=== PATIENT | female | born 1995 | race African-American/Black ===

== ENCOUNTER 2017-02-19 16:18 | Emergency (ER) | payer OTHER ==
--- NOTE | ~2017-02-19 | US106 ---
[facility] A Service of [facility] RADIOLOGY TEXT RESULTS PATIENT: SHANELL BANERJEE LOCATION: CFTX : [birth year] UNIT #: [id number] AGE: [address]: Diana López APRN SEX: F ORDER DR: [id number] [facility] [address] [place], [place] [address] [id number] MR#: [id number] Acc #: [id number] NAME: SHANELL BANERJEE : 1995 SEX: F STUDY DATE/TIME: 02/19/2017 17:24 UNIT: [facility] ROOM: STUDY DESCRIPTION: US Preg Uterus Transvaginal Attending Physician: Diana López A.P.R.N. Ordering Physician: Ren Hernandez M.D. Primary Care Physician: Primary Care Physician No MEDICAL IMAGING REPORT This report is preliminary unless electronic signature is present EXAM Ultrasound pelvis, early assessment, 02/19/2017 HISTORY 21-year-old female in the ED complaining of 1-day history of cramping pelvic pain and light vaginal bleeding during first trimester . TECHNIQUE Pelvic ultrasound examination was performed endovaginally. Transabdominal imaging was precluded by an empty urinary bladder. FINDINGS Single living intrauterine gestation. Estimated gestational age by ultrasound is 8 weeks, 3 days with an CIRILO of 09/28/2017. This is approximately 4 weeks more advanced than predicted by menstrual history. Gestational sac size is appropriate for gestational age, the sac is normally positioned within the central endometrial cavity. No significant subchorionic fluid is seen. Embryonic heart rate measuring up to 187 beats per minute. Right ovary not seen. Left ovary appears normal with a small physiologic cyst. No free pelvic fluid is identified. IMPRESSION Single living intrauterine gestation at 8 weeks, 3 days. Dictated by... Robert Galvan M.D. THIS IS AN ELECTRONICALLY VERIFIED REPORT Robert Galvan M.D. at 02/22/2017 5:58 AM NISHANT/miguel TD: 02/20/2017 08:53 STS. [facility] A Service of [facility] RADIOLOGY TEXT RESULTS PATIENT: SHANELL BANERJEE LOCATION: [facility] : [birth year] UNIT #: [id number] AGE: [address]: Diana López APRN SEX: F ORDER DR: LAMAR #: [id number] MEDICAL IMAGING REPORT Page 1 of 1 COPY
[2017-02-19 16:24] LABS: URINE SOURCE CATH
[2017-02-19 16:32] LABS: BASOPHIL# 0.1 X10e3 (0-0.3); BASOPHIL% 1.1 % (0-2.5); EOSINOPHIL# 0.2 X10e3 (0-0.7); EOSINOPHIL% 3.1 % (0.0-7.0); HEMATOCRIT 37.2 % (35.0-45.0); LYMPHOCYTE# 2.3 X10e3 (1.0-3.5); LYMPHOCYTE% 35.9 % (17.0-45.0); MEAN CELL VOLUME 80.4 FL (83-96); MEAN CORPUSCULAR HEMOGLOBIN 25.9 PG (28-34); MEAN CORPUSCULAR HGB CONC 32.2 g/dL (30-36); MEAN PLATELET VOLUME 8.9 FL (6.5-11.5); MONOCYTE# 0.4 X10e3 (0-1.0); NEUTROPHIL# 3.4 X10e3 (1.5-7.1); NEUTROPHIL% 53.9 % (40-75); PLATELET COUNT 335 X10e3 (140-420); RED BLOOD COUNT 4.63 X10e (3.90-5.30); RED CELL DISTRIBUTION WIDTH 15.6 % (11.0-15.5); WHITE BLOOD COUNT 6.4 X10e3 (4.0-10.5)
[2017-02-19 16:37] LABS: DIFF IND NO
[2017-02-19 16:50] LABS: URINE APPEARANCE CLEAR; URINE BILIRUBIN NEG (NEG); URINE BLOOD NEG (NEG); URINE COLOR DK YELLOW; URINE GLUCOSE NEG (NEG); URINE KETONE 1+ (NEG); URINE LEUKOCYTE ESTERASE TRACE (NEG); URINE NITRATE NEG (NEG); URINE PH 7.5 (5-8); URINE PROTEIN NEG (NEG); URINE SPECIFIC GRAVITY 1.026 (1.003-1.035)
[2017-02-19 16:55] LABS: URBCS1 AUWI 0-2 /[HPF] (0-2); URINE BACTERIA AUWI NEG (NEGATIVE); URINE SQUAMOUS EPITHELIAL CELL OCC /[HPF]; UWBCS1 AUWI 0-2 (0-5)
[2017-02-19 17:00] LABS: CULTURE INDICATED? NO
[2017-02-19 17:09] LABS: BUN/CREATININE RATIO 7.14; CALCIUM SERUM 9.3 mg/dL (8.4-10.2); CREATININE SERUM 0.7 mg/dL (0.6-1.4); GLOM FILT RATE Estimated 142.5 mL/min (>60); POTASSIUM 3.4 mmol/L (3.5-5.1)
[2017-02-23 08:29] LABS: CHLAMYDIA TRACH Not Detected (Not Detected); N GONOR Not Detected (Not Detected)
== END 2017-02-19 18:44 | disposition home or self-care (01) ==
LOC: CFTX 16:18
PROVIDERS: Nurse Practitioner
DX: O20.0 Threatened abortion (principal); O21.9 Vomiting of pregnancy, unspecified; R11.0 Nausea; O99.89 Other specified diseases and conditions complicating pregnancy, childbirth and the puerperium; O99.331 Smoking (tobacco) complicating pregnancy, first trimester; F17.210 Nicotine dependence, cigarettes, uncomplicated; Z3A.08 8 weeks gestation of pregnancy
CPT/HCPCS: 36415; 51701; 76817; 80048; 81003; 84702; 84703; 85025; 86900; 86901; 87491; 87591; 87808; 87905; 99284

== ENCOUNTER 2017-05-01 08:16 | Emergency (ER) | payer OTHER | END 2017-05-01 09:00 | disposition home or self-care (01) | LOC: CED 08:16 | DX: Z34.82 Encounter for supervision of other normal pregnancy, second trimester (principal) | CPT/HCPCS: 99283 ==